=== PATIENT | female | born 1975 | race African-American/Black ===

== ENCOUNTER 2017-01-28 13:32 | Emergency (ER) | payer OTHER ==
[~2017-01-28] VITALS: Ht 170.2 cm; Wt 75.3 kg
[2017-01-28 13:43] VITALS: BP 127/82
== END 2017-01-28 14:50 | disposition home or self-care (01) ==
LOC: ER 13:37
DX: F20.9 Schizophrenia, unspecified (principal); Z76.0 Encounter for issue of repeat prescription

== ENCOUNTER 2019-03-18 21:36 | Emergency (ER) | payer MEDICARE, MEDICAID ==
[~2019-03-18] VITALS: Ht 157.5 cm; Wt 63.5 kg
[2019-03-18] MEDS ORDERED: HYDROcodone-ACET 7.5/325MG TAB PO ONE (23:15)
[2019-03-18] MEDS ORDERED: methylPREDNISolone SOD SUCC 125 MG/2 ML VL IM ONE (23:15)
[2019-03-18] MEDS ORDERED: cefTRIAXone SOD 1,000 MG VL IM ONE (23:15)
[2019-03-19 00:21] VITALS: BP 133/61
== END 2019-03-19 00:35 | disposition home or self-care (01) ==
LOC: ER 21:40
DX: S80.862A Insect bite (nonvenomous), left lower leg, initial encounter (principal); S80.861A Insect bite (nonvenomous), right lower leg, initial encounter; W57.XXXA Bitten or stung by nonvenomous insect and other nonvenomous arthropods, initial encounter; Y93.89 Activity, other specified; Y99.8 Other external cause status; Y92.89 Other specified places as the place of occurrence of the external cause
CPT/HCPCS: 96372; 99283; J0696; J2930

== ENCOUNTER 2019-06-13 20:25 | Emergency (ER) | payer MEDICARE, MEDICAID ==
[~2019-06-13] VITALS: Ht 167.6 cm; Wt 82.1 kg
[2019-06-13 20:44] VITALS: BP 150/91
== END 2019-06-14 00:53 | disposition left against medical advice (07) ==
LOC: ER 20:25
DX: R21 Rash and other nonspecific skin eruption (principal); Z53.21 Procedure and treatment not carried out due to patient leaving prior to being seen by health care provider

== ENCOUNTER 2019-11-18 13:16 | Emergency (ER) | payer MEDICARE, MEDICAID ==
[2019-11-18 15:07] LABS: Urine Bacteria NONE SEEN /hpf (None Seen); Urine Blood 2+ /uL (Negative); Urine Mucus FEW (None Seen); Urine WBC 2 /hpf (0 - 5)
== END 2019-11-18 18:19 | disposition left against medical advice (07) ==
LOC: ER 13:16
DX: R10.9 Unspecified abdominal pain (principal); Z53.21 Procedure and treatment not carried out due to patient leaving prior to being seen by health care provider
CPT/HCPCS: 81001

== ENCOUNTER 2019-11-19 19:56 | Emergency (ER) | payer MEDICARE, MEDICAID ==
[~2019-11-19] VITALS: Ht 167.6 cm; Wt 63.5 kg
[2019-11-19 20:10] VITALS: BP 127/84
== END 2019-11-20 01:46 | disposition home or self-care (01) ==
LOC: EDBD 19:56 → ER 19:59
DX: R51 Headache (principal)

== ENCOUNTER 2021-08-26 11:13 | Emergency (ER) | payer MEDICARE, MEDICAID ==
[~2021-08-26] VITALS: Ht 170.2 cm; Wt 77.1 kg
[2021-08-26] MEDS ORDERED: DIVA500T2 PO (13:21)
[2021-08-26] MEDS ORDERED: METF-370 PO (13:21)
[2021-08-26 14:17] VITALS: BP 130/74
== END 2021-08-26 14:26 | disposition home or self-care (01) ==
LOC: ER 11:13
DX: R56.9 Unspecified convulsions (principal); Z76.0 Encounter for issue of repeat prescription

== ENCOUNTER 2021-11-05 13:34 | Emergency (ER) | payer MEDICARE, MEDICAID ==
[~2021-11-05] VITALS: Ht 167.6 cm; Wt 88.9 kg
[~2021-11-05 13:34] MED LIST: DIVA500T2 PO; METF-370 PO
[2021-11-05 13:39] VITALS: BP 132/82
== END 2021-11-05 18:20 | disposition left against medical advice (07) ==
LOC: ER 13:34
DX: E11.9 Type 2 diabetes mellitus without complications (principal); Z76.0 Encounter for issue of repeat prescription; Z53.21 Procedure and treatment not carried out due to patient leaving prior to being seen by health care provider

== ENCOUNTER 2021-11-27 01:44 | Emergency (ER) | payer MEDICARE, MEDICAID ==
[~2021-11-27] VITALS: Ht 167.6 cm; Wt 88.9 kg
[2021-11-27 01:48] VITALS: BP 139/63
== END 2021-11-27 06:34 | disposition left against medical advice (07) ==
LOC: ER 01:44
DX: R53.1 Weakness (principal); Z53.21 Procedure and treatment not carried out due to patient leaving prior to being seen by health care provider

== ENCOUNTER 2025-01-07 10:51 | Emergency (ER) | payer MEDICAID, MEDICARE ==
[~2025-01-07] VITALS: Ht 177.8 cm; Wt 76.0 kg
[~2025-01-07 10:51] MED LIST changes: +DIVA-139 PO; +DIVA-91 PO; -DIVA500T2 PO; +METF-489 PO; +MUPI2OIN2 TOP; +TRAM50TA2 PO
[2025-01-07 11:25] VITALS: BP 111/75; PULSE 86; RESP 16; O2SAT 97
== END 2025-01-07 13:31 | disposition left against medical advice (07) ==
LOC: ER 10:51
DX: Z00.00 Encounter for general adult medical examination without abnormal findings (principal); Z53.21 Procedure and treatment not carried out due to patient leaving prior to being seen by health care provider; Y04.2XXA Assault by strike against or bumped into by another person, initial encounter; Y93.89 Activity, other specified; Y92.89 Other specified places as the place of occurrence of the external cause; Y99.8 Other external cause status

== ENCOUNTER 2025-04-02 10:07 | Inpatient (IN) | payer MEDICARE, MEDICAID ==
[~2025-04-02] VITALS: Ht 172.7 cm; Wt 70.5 kg
--- NOTE | 2025-04-02 10:23 | ED.PDOC ---
History of Present Illness HPI Comments 49-year-old female with no reported PMHx brought in by EMS presents with a chief complaint of foot pain x "couple weeks". Patient mentions that her pain is localized to her left foot, nonradiating, and her foot is swollen. [place] and is considered homeless. Patient endorses meth use, marijuana use, alcohol use, and heroin use. No other symptoms or modifying factors present at this time. Time Seen by MD: 10:14 Primary Care Provider: NONE Reviewed Notes: Nurses Notes, Medications, Allergies Allergies: Coded Allergies: NO KNOWN ALLERGIES (Unverified , 01/28/17) Home Meds Active Scripts Mupirocin (Pseudomonas Fluores (Mupirocin) 2 % Oin, 2 % TOP BID for 7 Days, #22 GRAMS Prov:CECILIALIBBY ORANTES 01/26/24 Tramadol Hcl (Tramadol Hcl) 50 Mg Tab, 50 MG PO TIDPRN PRN, #12 TAB Prov:LIBBY BROOKS 01/26/24 Divalproex Sodium (Depakote) 250 Mg Tab, 1 TAB PO BID, #60 TAB 0 Refills Prov:LIBBY BROOKS 01/26/24 Metformin Hydrochloride (METFORMIN HCL ER) 500 Mg Tab, 1 TAB PO DAILY, #30 TAB 0 Refills Prov:CECILIALIBBY ORANTES 01/26/24 Divalproex Sodium (Depakote) 500 Mg Tab, 1 TAB PO BID, #60 TAB 0 Refills Prov:SONALI RENDON MD 08/26/21 Metformin Hydrochloride (Metformin Hcl) 500 Mg Tab, 500 MG PO DAILY for 30 Days, #30 MG 0 Refills Prov:SONALI RENDON MD 08/26/21 Information Source: Patient, Emergency Med Personnel Mode of Arrival: EMS Severity: Moderate Timing: Days Duration: Since onset Prehospital treatment: Manufacturing Supervisor Past Medical History PAST MEDICAL HISTORY: Denies Surgical History: Denies all surgeries NEUROPHYSIOLOGICAL TECHNICIAN History: No Pertinent NEUROPHYSIOLOGICAL TECHNICIAN History Family History Family History: Reviewed,noncontributory to illness, No family hx of Cancer, No family hx of DM, No family hx of Heart ester, No family hx of HTN, No family hx ofKidney ester, No family hx of Liver ester, No family hx of Lung ester, No family hx of Stroke Social History Smoker: Cigarettes, Less Than 1 Pack/Day Alcohol: Heavy Drugs: Heroin, Marijuana, Methamphetamine Lives In: Homeless Constitutional: denies: chills, diaphoresis, fatigue, fever, malaise, sweats, weakness, others EENTM: denies: blurred vision, double vision, ear bleeding, ear discharge, ear drainage, ear pain, ear ringing, eye pain, eye redness, hearing loss, mouth pain, mouth swelling, nasal discharge, nose bleeding, nose congestion, nose pain, photophobia, tearing, throat pain, throat swelling, voice changes, others Respiratory: denies: cough, hemoptysis, orthopnea, SOB at rest, shortness of breath, SOB with excertion, stridor, wheezing, others Cardiovascular: denies: chest pain, dizzy spells, diaphoresis, Dyspnea on exertion, edema, irregular heart beat, left arm pain, lightheadedness, palpitations, PND, syncope, others Gastrointestinal: denies: abdomen distended, abdominal pain, blood streaked bowels, constipated, diarrhea, dysphagia, difficulty swallowing, hematemesis, melena, nausea, poor appetite, poor fluid intake, rectal bleeding, rectal pain, vomiting, others Genitourinary: denies: abnormal vagina bleeding, burning, dyspareunia, dysuria, flank pain, frequency, hematuria, incontinence, pain, , vagina discharge, urgency, others Neurological: denies: dizziness, fainting, headache, left sided numbness, left sided weakness, numbness, paresthesia, pre-existing deficit, right sided numbness, right sided weakness, seizure, speech problems, tingling, tremors, weakness, others Musculoskeletal: reports: muscle pain; denies: back pain, gout, joint pain, joint swelling, muscle stiffness, neck pain, others Integumetry: denies: bruises, change in color, change in hair/nails, dryness, laceration, lesions, lumps, rash, wounds, others Allergic/Immunocompromised: denies: Difficulty Healing, Frequent Infections, Hives, Itching, others Hematologic/Lymphatic: denies: anemia, blood clots, easy bleeding, easy bruising, swollen glands, others Endocrine: denies: excessive hunger, excessive sweating, excessive thirst, excessive urination, flushing, intolerance to cold, intolerance to heat, unexplained weight gain, unexplained weight loss, others Psychiatric: denies: anxiety, bipolar disorder, depression, hopeless, panic disorder, schizophrenia, sleepless, suicidal, others All Other Systems: Reviewed and Negative Physical Exam General Appearance: Mild Distress HEENT: Normal ENT Inspection, Pharynx Normal, TMs Normal Neck: Full Range of Motion, Non-Tender, Normal, Normal Inspection Respiratory: Chest Non-Tender, Lungs Clear, No Accessory Muscle Use, No Respiratory Distress, Normal Breath Sounds Cardiovascular: No Edema, No JVD, No Murmur, No Gallop, Normal Peripheral Pulses, Regular Rate/Rhythm Breast Exam: Deferred Gastrointestinal: No Organomegaly, Non Tender, No Pulsatile Mass, Normal Bowel Sounds, Soft Genitalia: Deferred Pelvic: Deferred Rectal: Deferred Extremities: No calf tenderness, Normal capillary refill, Normal inspection, Normal range of motion, Non-tender, No pedal edema Musculoskeletal : Apperance: Normal Neurologic: Alert, wind commissioning technician II-XII nml as Tested, No Motor Deficits, Normal Affect, Normal Mood, No Sensory Deficits Cerebellar Function: Normal Reflexes: Normal Skin: Dry, Rash (There is redness in her rash to the lower extremities with tenderness to palpation), Warm Lymphatic: No Adenopathy Was a procedure done? Was a procedure done?: No Differential Dx Considerations may include: Cellulitis, osteomyelitis X-Ray, Labs, Meds, VS Vital Signs Date Time Temp Pulse Resp B/P (MAP) Pulse Ox O2 Delivery O2 Flow Rate FiO2 04/02/25 13:45 97.1 67 18 111/64 (80) 98 97.1 04/02/25 11:01 97.7 74 16 100/58 (72) 98 97.7 04/02/25 11:01 74 16 98 Room Air 04/02/25 10:30 98.8 84 16 134/97 (109) 96 98.8 Lab Test 04/02/25 10:42 Range/Units White Blood Count 7.8 4.4-10.8 10^3/uL Red Blood Count 4.22 4.0-5.20 10^6/uL Hemoglobin 13.0 12.2-16.2 g/dL Hematocrit 37.2 36.0-46.0 % Mean Corpuscular Volume 88.1 80.0-100.0 fL Mean Corpuscular Hemoglobin 30.8 28.0-32.0 pg Mean Corpuscular Hemoglobin Concent 35.0 32.0-36.0 g/dL Red Cell Distribution Width 12.9 11.8-14.3 % Platelet Count 376 140-450 10^3/uL Mean Platelet Volume 8.0 6.9-10.8 fL Neutrophils (%) (Auto) 73.5 37.0-80.0 % Lymphocytes (%) (Auto) 19.0 10.0-50.0 % Monocytes (%) (Auto) 6.3 0.0-12.0 % Eosinophils (%) (Auto) 0.8 0.0-7.0 % Basophils (%) (Auto) 0.4 0.0-2.0 % Neutrophils # (Auto) 5.7 1.6-8.6 10 ^3/uL Lymphocytes # (Auto) 1.5 0.4-5.4 10 ^3/uL Monocytes # (Auto) 0.5 0-1.3 10 ^3/uL Eosinophils # (Auto) 0.1 0-0.8 10 ^3/uL Basophils # (Auto) 0 0-0.2 10 ^3/uL Nucleated Red Blood Cells 0.1 % Erythrocyte Sedimentation Rate 80 H 0-20 mm/hr Sodium Level 137 136-145 mmol/L Potassium Level 3.6 3.5-5.1 mmol/L Chloride Level 104 98-107 mmol/L Carbon Dioxide Level 28 20-31 mmol/L Anion Gap 5 5-15 Blood Urea Nitrogen 12 9-23 mg/dL Creatinine 0.80 0.550-1.02 mg/dL Glomerular Filtration Rate Calc 90 >90 mL/min BUN/Creatinine Ratio 15.0 10.0-20.0 Serum Glucose 124 H 74-106 mg/dL Calcium Level 9.3 8.7-10.4 mg/dL Plasma/Serum Blood Alcohol < 3.0 <10 mg/dL Current Medications Medications (Trade) Dose Ordered Sig/Guillermo Route Start Time Stop Time Status Last Admin Clindamycin Phosphate 50 ml @ 50 mls/hr ONCE ONCE IV 04/02/25 10:30 04/02/25 11:29 DC 04/02/25 11:09 Sodium Chloride 1,000 ml @ 1,000 mls/hr Q1H ONCE IV 04/02/25 10:30 04/02/25 11:29 DC 04/02/25 11:00 IV Hep-Lock was established him on the face in his started on clindamycin IV piggyback Given 1 L bolus of normal saline At this time, the patient has been head diagnosis bilateral leg cellulitis The patient understands and agrees with the management The CBC is within normal limits around the chemistry panel within normal limits when the ESR is elevated in bed eating Time of 1ST Reevaluation: 10:44 Reevaluation 1ST: Unchanged Patient Education/Counseling: Diagnosis, Treatment, Prognosis Family Education/Counseling: No Family Present Departure 1 Departure Time of Disposition: 16:31 Impression: Primary Impression: Bilateral lower leg cellulitis Additional Impression: History of schizophrenia Disposition: ADMITTED INPATIENT Admit to: Med Surg Condition: Fair Critical Care Note Critical Care Time?: No Stability Stability form required: Yes Unstable for transfer: ED Physician Assesment (Clinical assesment) Heart Score Heart Score: Heart Score Response (Comments) Value History N/A 0 EKG N/A 0 Age N/A 0 Risk Factors N/A 0 Troponin N/A 0 Total 0 I personally scribed for ALY JOSEPH MD ([email or web address]) on 04/02/25 at 10:23. Electronically submitted by Bryan Eugene ([email or web address]). ALY JOSEPH MD Apr 02, 2025 10:23
[2025-04-02 10:58] LABS: Basophils # (auto) 0 10 ^3/uL (0-0.2); Basophils % (auto) 0.4 % (0.0-2.0); Eosinophils # (auto) 0.1 10 ^3/uL (0-0.8); Eosinophils % (auto) 0.8 % (0.0-7.0); Hematocrit 37.2 % (36.0-46.0); Lymphocytes # (auto) 1.5 10 ^3/uL (0.4-5.4); Mean Corpuscular Hemoglobin 30.8 pg (28.0-32.0); Mean Corpuscular Volume 88.1 fL (80.0-100.0); Monocytes # (auto) 0.5 10 ^3/uL (0-1.3); Monocytes % (auto) 6.3 % (0.0-12.0); Neutrophils # (auto) 5.7 10 ^3/uL (1.6-8.6); Neutrophils % (auto) 73.5 % (37.0-80.0); Nucleated Red Blood Cells % 0.1 %; Platelet Count (auto) 376 10^3/uL (140-450); Red Blood Cells 4.22 10^6/uL (4.0-5.20); Red Cell Distribution Width 12.9 % (11.8-14.3); White Blood Cell 7.8 10^3/uL (4.4-10.8)
[2025-04-02] MEDS: SODIUM CHLORIDE 0.9% 1,000 ML IV ONE (11:00)
[2025-04-02 11:08] LABS: Chloride 104 mmol/L (98-107); Potassium 3.6 mmol/L (3.5-5.1); Sodium 137 mmol/L (136-145)
[2025-04-02 11:09] LABS: Anion Gap 5 (5-15); Carbon Dioxide 28 mmol/L (20-31)
[2025-04-02] MEDS: CLINDAMYCIN 600MG IV 50 ML IV ONE (11:09)
[2025-04-02 11:10] LABS: Calcium 9.3 mg/dL (8.7-10.4)
[2025-04-02 11:14] LABS: Blood Urea Nitrogen 12 mg/dL (9-23)
[2025-04-02 11:16] LABS: Blood Alcohol < 3.0 mg/dL (<10); Glucose 124 mg/dL (74-106)
[2025-04-02 11:32] LABS: Erythrocyte Sedimentation Rate 80 mm/hr (0-20)
[2025-04-02] MEDS ORDERED: ONDANSETRON HCL 4 MG/2 ML VIAL IV PRN (19:00)
[2025-04-02] MEDS ORDERED: HYDROcodone-ACET 5/325MG TAB PO PRN (19:00)
[2025-04-02] MEDS ORDERED: ACETAMINOPHEN 325 MG TAB PO PRN (19:00)
[2025-04-02 20:02] VITALS: O2SAT 98
--- NOTE | 2025-04-02 21:48 | DVHHP2 ---
History of Present Illness Reason for Visit: Foot cellulitis History of Present Illness 49-year-old female presents for evaluation of bilateral feet redness. Patient reports a two week history of noticing redness to her left foot and now started on her right foot as well. Denies any trauma to the area. No fever or chills. No other acute complaints. Past Medical History Diabetes mellitus Past Surgical History Denies Family History Noncontributory Smoke: No ALCOHOL: none Drugs: None Lives: with Family Review of Systems Review of Systems Review of systems are currently negative otherwise addressed in HPI. Allergies: Coded Allergies: NO KNOWN ALLERGIES (Unverified , 01/28/17) Medications Current Medications Medications Dose Ordered Sig/Guillermo Route Start Time Stop Time Status Last Admin Dose Admin Acetaminophen/ Hydrocodone Bitart 1 tab Q4HP PRN PO 04/02/25 19:00 Ondansetron HCl 4 mg Q4HP PRN IV 04/02/25 19:00 Acetaminophen 650 mg Q6HP PRN PO 04/02/25 19:00 Exam Vital Signs Vital Signs Date Time Temp Pulse Resp B/P (MAP) Pulse Ox O2 Delivery O2 Flow Rate FiO2 04/02/25 20:02 98 Room Air* 0 21 04/02/25 19:39 98.8 82 20 120/68 (85) 98.8 Exam Gen: 49-year-old female in mild distress. Skin: Warm, dry, normal color and texture, no rash. HEENT: Normocephalic atraumatic, mucous membranes moist and pink. Neck: Cervical and supraclavicular nodes normal without enlargement, trachea is midline, thyroid gland is normal without masses. Pulmonary: Clear to auscultation and percussion bilaterally. Cardiac: Regular rate and rhythm. No murmur Abdomen: Soft, nontender, nondistended, bowel sounds present all 4 quadrants, no guarding, no rigidity, no organomegaly. Extremities: No cyanosis, clubbing, bilateral feet cellulitis Neuro: Cranial nerves II through XII grossly intact, normal affect and speech, no focal motor deficits. Labs/Xrays Labs Test 04/02/25 19:18 04/02/25 10:42 Range/Units Lactic Acid Level 0.9 0.4-2.0 mmol/L White Blood Count 7.8 4.4-10.8 10^3/uL Red Blood Count 4.22 4.0-5.20 10^6/uL Hemoglobin 13.0 12.2-16.2 g/dL Hematocrit 37.2 36.0-46.0 % Mean Corpuscular Volume 88.1 80.0-100.0 fL Mean Corpuscular Hemoglobin 30.8 28.0-32.0 pg Mean Corpuscular Hemoglobin Concent 35.0 32.0-36.0 g/dL Red Cell Distribution Width 12.9 11.8-14.3 % Platelet Count 376 140-450 10^3/uL Mean Platelet Volume 8.0 6.9-10.8 fL Neutrophils (%) (Auto) 73.5 37.0-80.0 % Lymphocytes (%) (Auto) 19.0 10.0-50.0 % Monocytes (%) (Auto) 6.3 0.0-12.0 % Eosinophils (%) (Auto) 0.8 0.0-7.0 % Basophils (%) (Auto) 0.4 0.0-2.0 % Neutrophils # (Auto) 5.7 1.6-8.6 10 ^3/uL Lymphocytes # (Auto) 1.5 0.4-5.4 10 ^3/uL Monocytes # (Auto) 0.5 0-1.3 10 ^3/uL Eosinophils # (Auto) 0.1 0-0.8 10 ^3/uL Basophils # (Auto) 0 0-0.2 10 ^3/uL Nucleated Red Blood Cells 0.1 % Erythrocyte Sedimentation Rate 80 H 0-20 mm/hr Sodium Level 137 136-145 mmol/L Potassium Level 3.6 3.5-5.1 mmol/L Chloride Level 104 98-107 mmol/L Carbon Dioxide Level 28 20-31 mmol/L Anion Gap 5 5-15 Blood Urea Nitrogen 12 9-23 mg/dL Creatinine 0.80 0.550-1.02 mg/dL Glomerular Filtration Rate Calc 90 >90 mL/min BUN/Creatinine Ratio 15.0 10.0-20.0 Serum Glucose 124 H 74-106 mg/dL Calcium Level 9.3 8.7-10.4 mg/dL Plasma/Serum Blood Alcohol < 3.0 <10 mg/dL Assessment/Plan Assessment/Plan Assessment Bilateral feet cellulitis Diabetes mellitus Plan Admit the patient to [facility] to the hospitalist Clindamycin Wound consult Continue treatment per orders. Plan discussed with: Patient My Orders Orders - МАРИНА BENEDICT Procedure Category Date Status Time Blood Culture KATHERIN 04/02/25 In Process 18:50 Consistent DIET 04/03/25 Transmitted Carb(Ccho)Diabetes Breakfast Basic Metabolic Panel LAB 04/03/25 Verified 04:00 Admit ADMIT 04/02/25 Transmitted 18:50 Hydrocodone-Acet PHA 04/02/25 In Process 5/325mg Tab ([place] 19:00 Ondansetron Hcl PHA 04/02/25 In Process (Zofran) 19:00 Complete Blood Count LAB 04/03/25 Verified 04:00 Condition: Stable CHICHI 04/02/25 In Process 18:50 Acetaminophen Tablet PHA 04/02/25 In Process (Tylenol Tablet) 19:00 Bedrest With Bathroom CHICHI 04/02/25 In Process Privileg 18:50 * Retail And Promotions Coordinator CONS 04/02/25 Transmitted Consult 20:43 Bilat Lower Dvt US 04/02/25 Verified 21:43 Clindamycin Ivpb PHA 04/02/25 Verified Cleocin 22:00 * Wound Consult CONS 04/02/25 Verified Date of Service: Apr 02, 2025 Billing Provider: МАРИНА BENEDICT Common Visit Codes: [id number] INP/OBS CARE (MOD) МАРИНА BENEDICT Apr 02, 2025 21:48
[2025-04-02 22:08] VITALS: PULSE 59; RESP 18; O2SAT 99
[2025-04-02 22:20] VITALS: BP 126/59; PULSE 59; RESP 18; TEMP 98.4; O2SAT 99
[2025-04-02] MEDS: CLINDAMYCIN 600MG IV 50 ML IV SCH (23:23)
[2025-04-03 01:00] VITALS: BP 108/63; PULSE 62; RESP 18; TEMP 98.2; O2SAT 100
--- NOTE | 2025-04-03 01:45 | DVH ---
Bilateral lower extremity venous duplex Clinical History: r/o dvt Comparison: None Technique: Duplex Doppler evaluation of the deep venous systems of both lower extremities from the common femora l veins to the popliteal veins including color Doppler and spectral/pulsed waveform analysis was perf ormed. Findings: RIGHT SIDE: The common femoral vein demonstrates appropriate compressibility and waveform variability. There is compressibility/patency of the great saphenous vein at the proximal thigh. The femoral vein demonstrates appropriate compressibility and waveform variability. The deep femoral vein demonstrates appropriate compressibility and waveform variability. The popliteal vein demonstrates appropriate compressibility and waveform variability. There is normal compressibility at the tibioperoneal trunk. LEFT SIDE: The common femoral vein demonstrates appropriate compressibility and waveform variability. There is compressibility/patency of the great saphenous vein at the proximal thigh. The femoral vein demonstrates appropriate compressibility and waveform variability. The deep femoral vein demonstrates appropriate compressibility and waveform variability. The popliteal vein demonstrates appropriate compressibility and waveform variability. There is normal compressibility at the tibioperoneal trunk. Impression: 1. No right or left femoropopliteal venous thrombosis.
[2025-04-03 05:00] VITALS: BP 103/56; PULSE 55; RESP 19; TEMP 97.9; O2SAT 98
[2025-04-03 06:54] LABS: Chloride 105 mmol/L (98-107); Potassium 4.1 mmol/L (3.5-5.1); Sodium 140 mmol/L (136-145)
[2025-04-03 06:55] LABS: Anion Gap 6 (5-15); Carbon Dioxide 29 mmol/L (20-31)
[2025-04-03 07:00] LABS: BUN/Creatinine Ratio 14.6 (10.0-20.0); Blood Urea Nitrogen 14 mg/dL (9-23); Glucose 101 mg/dL (74-106)
[2025-04-03 07:02] LABS: Calcium 8.5 mg/dL (8.7-10.4)
[2025-04-03 07:12] LABS: Basophils # (auto) 0 10 ^3/uL (0-0.2); Basophils % (auto) 0.5 % (0.0-2.0); Eosinophils # (auto) 0.2 10 ^3/uL (0-0.8); Eosinophils % (auto) 2.5 % (0.0-7.0); Hematocrit 34.7 % (36.0-46.0); Hemoglobin 11.9 g/dL (12.2-16.2); Lymphocytes % (auto) 29.7 % (10.0-50.0); Mean Corpuscular Hemoglobin 30.5 pg (28.0-32.0); Mean Corpuscular Hgb Conc. 34.3 g/dL (32.0-36.0); Monocytes # (auto) 0.6 10 ^3/uL (0-1.3); Monocytes % (auto) 9.4 % (0.0-12.0); Neutrophils # (auto) 3.9 10 ^3/uL (1.6-8.6); Neutrophils % (auto) 57.9 % (37.0-80.0); Nucleated Red Blood Cells % 0.1 %; Platelet Count (auto) 357 10^3/uL (140-450); Red Cell Distribution Width 12.9 % (11.8-14.3); White Blood Cell 6.8 10^3/uL (4.4-10.8)
[2025-04-03 09:19] VITALS: BP 107/61; PULSE 58; RESP 17; TEMP 98.1; O2SAT 100
[2025-04-03 13:00] VITALS: BP 118/68; PULSE 56; RESP 17; TEMP 97.8; O2SAT 100
--- NOTE | 2025-04-03 15:29 | DVHPN2 ---
Reviewed: Care Plan, H&P, Labs, Medications, Previous Orders, Radiology Changes from previous H/P or p: No Changes Objective Vitals Vital Signs Date Time Temp Pulse Resp B/P (MAP) Pulse Ox O2 Delivery O2 Flow Rate FiO2 04/03/25 13:00 97.8 56 17 118/68 (85) 100 97.8 04/02/25 22:08 Room Air* 0 21 Intake/Output Intake and Output 04/03/25 07:00 Intake Total 1750 ml Balance 1750 ml Intake Oral 600 ml IV Total 1150 ml # Voids 3 Medications Current Medications Medications Dose Ordered Sig/Guillermo Route Start Time Stop Time Status Last Admin Dose Admin Acetaminophen/ Hydrocodone Bitart 1 tab Q4HP PRN PO 04/02/25 19:00 Ondansetron HCl 4 mg Q4HP PRN IV 04/02/25 19:00 Acetaminophen 650 mg Q6HP PRN PO 04/02/25 19:00 Clindamycin Phosphate 50 ml @ 50 mls/hr Q8HR IV 04/02/25 22:00 04/03/25 14:47 50 MLS/HR Laboratory Results Laboratory Tests 04/03/25 05:25 Chemistry Test 04/03/25 05:25 Calcium Level 8.5 mg/dL (8.7-10.4) L Labs and/or images reviewed: Labs reviewed by me, Image(s) reviewed by me Assessment/Plan Assessment/Plan Cellulitis bilateral lower extremities: Rocephin clindamycin Diabetes DVT ruled out Plan discussed with: Patient Date of Service: Apr 03, 2025 Billing Provider: DIMAS MULLER MD Common Visit Codes: [id number] INP/OBS CARE(HIGH) DIMAS MULLER MD Apr 03, 2025 15:29
[2025-04-03 16:42] VITALS: BP 137/75; PULSE 64; RESP 17; TEMP 98.5; O2SAT 100
[2025-04-03] MEDS: cefTRIAXone 1GM/50ML D5W 50 ML IV ONE (18:06)
[2025-04-03 21:00] VITALS: BP 135/75; PULSE 60; RESP 16; TEMP 98.4; O2SAT 98
[2025-04-04 01:00] VITALS: BP 135/104; PULSE 71; RESP 20; O2SAT 98
[2025-04-04 07:44] VITALS: BP 121/74; PULSE 100; RESP 18; TEMP 98.5; O2SAT 61
[2025-04-04] MEDS ORDERED: HYDR-4902 PO (07:55)
[2025-04-04] MEDS ORDERED: CLIN1CAP70 PO (07:55)
[2025-04-04] MEDS ORDERED: CEPH250C PO (07:55)
--- NOTE | 2025-04-04 07:57 | DVHPN2 ---
Reviewed: Care Plan, H&P, Labs, Medications, Previous Orders, Radiology Changes from previous H/P or p: No Changes Objective Vitals Vital Signs Date Time Temp Pulse Resp B/P (MAP) Pulse Ox O2 Delivery O2 Flow Rate FiO2 04/04/25 07:44 98.5 100 18 121/74 (90) 61 98.5 04/03/25 20:00 Room Air* 0 21 Intake/Output Intake and Output 04/04/25 07:00 Intake Total 1700 ml Balance 1700 ml Intake Oral 1550 ml IV Total 150 ml # Voids 8 Medications Current Medications Medications Dose Ordered Sig/Guillermo Route Start Time Stop Time Status Last Admin Dose Admin Acetaminophen/ Hydrocodone Bitart 1 tab Q4HP PRN PO 04/02/25 19:00 Ondansetron HCl 4 mg Q4HP PRN IV 04/02/25 19:00 Acetaminophen 650 mg Q6HP PRN PO 04/02/25 19:00 Clindamycin Phosphate 50 ml @ 50 mls/hr Q8HR IV 04/02/25 22:00 04/04/25 05:31 50 MLS/HR Ceftriaxone Sodium 50 ml @ 100 mls/hr DAILY@09 IV 04/04/25 09:00 Laboratory Results Laboratory Tests 04/03/25 05:25 Microbiology Microbiology Date/Time Source Procedure Growth Status 04/02/25 19:18 Blood Blood Culture - Preliminary NO GROWTH AFTER 24 HOURS OF INCUBATION. Resulted Labs and/or images reviewed: Labs reviewed by me, Image(s) reviewed by me Assessment/Plan Assessment/Plan Cellulitis bilateral lower extremities: Rocephin clindamycin Diabetes DVT ruled out Patient feels better and wants to be discharged Plan discussed with: Patient My Orders Orders - DIMAS MULLER MD Procedure Category Date Status Time Ceftriaxone 1gm/50ml PHA 04/04/25 In Process D5w (Rocephin) 09:00 Apply: CHICHI 04/03/25 In Process 12:52 * Dietary Consult CONS 04/03/25 Transmitted 19:06 Schedule For Dc CHICHI 04/04/25 In Process Clinic F/U 07:53 Date of Service: Apr 04, 2025 Billing Provider: DIMAS MULLER MD Common Visit Codes: [id number] INP/OBS CARE(HIGH) DIMAS MULLER MD Apr 04, 2025 07:57
--- NOTE | 2025-04-04 08:00 | DVHDS2 ---
Discharge Summary Date of Admission Apr 02, 2025 at 18:50 Date of Discharge: Apr 04, 2025 Admitting Diagnosis Cellulitis bilateral lower extremities Wounds: None Labs/Diagnostic Data: Laboratory Results Test 04/03/25 05:25 04/02/25 19:18 04/02/25 10:42 White Blood Count 6.8 10^3/uL (4.4-10.8) Red Blood Count 3.90 10^6/uL (4.0-5.20) Hemoglobin 11.9 g/dL (12.2-16.2) Hematocrit 34.7 % (36.0-46.0) Mean Corpuscular Volume 89.0 fL (80.0-100.0) Mean Corpuscular Hemoglobin 30.5 pg (28.0-32.0) Mean Corpuscular Hemoglobin Concent 34.3 g/dL (32.0-36.0) Red Cell Distribution Width 12.9 % (11.8-14.3) Platelet Count 357 10^3/uL (140-450) Mean Platelet Volume 8.4 fL (6.9-10.8) Neutrophils (%) (Auto) 57.9 % (37.0-80.0) Lymphocytes (%) (Auto) 29.7 % (10.0-50.0) Monocytes (%) (Auto) 9.4 % (0.0-12.0) Eosinophils (%) (Auto) 2.5 % (0.0-7.0) Basophils (%) (Auto) 0.5 % (0.0-2.0) Neutrophils # (Auto) 3.9 10 ^3/uL (1.6-8.6) Lymphocytes # (Auto) 2.0 10 ^3/uL (0.4-5.4) Monocytes # (Auto) 0.6 10 ^3/uL (0-1.3) Eosinophils # (Auto) 0.2 10 ^3/uL (0-0.8) Basophils # (Auto) 0 10 ^3/uL (0-0.2) Nucleated Red Blood Cells 0.1 % Sodium Level 140 mmol/L (136-145) Potassium Level 4.1 mmol/L (3.5-5.1) Chloride Level 105 mmol/L (98-107) Carbon Dioxide Level 29 mmol/L (20-31) Anion Gap 6 (5-15) Blood Urea Nitrogen 14 mg/dL (9-23) Creatinine 0.96 mg/dL (0.550-1.02) Glomerular Filtration Rate Calc 72 mL/min (>90) BUN/Creatinine Ratio 14.6 (10.0-20.0) Serum Glucose 101 mg/dL (74-106) Calcium Level 8.5 mg/dL (8.7-10.4) Lactic Acid Level 0.9 mmol/L (0.4-2.0) Erythrocyte Sedimentation Rate 80 mm/hr (0-20) Plasma/Serum Blood Alcohol < 3.0 mg/dL (<10) Other Laboratory Tests 04/03/25 05:25 Brief Hx & Hospital Course: 49-year-old female homeless history of diabetes came in complaining of redness swelling and tenderness with a bilateral lower legs found to have cellulitis treated with Rocephin and clindamycin DVT ruled out. Afebrile vitals stable patient like to be discharged. Discharged home on Keflex clindamycin and Byron which was transmitted to the [facility]. She will follow up in discharge clinic in one week. Social service consult placed for arranging primary Dr and also for giving patient homeless resources. Consults/Reason for consult None Operations or Procedures Venous ultrasound Condition at Discharge: Fair Final Diagnosis/Problems List Cellulitis bilateral lower extremities: Rocephin clindamycin Diabetes DVT ruled out Discharge Disposition: Home Discharge Instruct/Medications Diet: Regular Activity: Light activity Follow Up/Referral: Follow up with the discharge clinic in one week Fill prescription today and start taking meds Medications: Keflex Clindamycin [facility] (Time taken for discharge summary 35 minutes) Discharge Statement: "Patient was advised to return to the ER or call 911 if any headaches, dizziness, shortness of breath, chest pain, abdominal pain, bleeding, fevers, or worsening of medical condition. Patient was counseled about treatment plan, medications, possible side effects, patientverbalized understanding. All questions were answered to the best of my ability. This discharge took greater then 30 minutes in planning, reviewing documentation, counseling the patient, and discussing with other team members." ASSESSMENT ASSESSMENT Hospital Course Improved Assessment Cellulitis bilateral lower extremities: Rocephin clindamycin Diabetes DVT ruled out Date of Service: Apr 04, 2025 Billing Provider: DIMAS MULLER MD Common Visit Codes: [id number] DISCH DAY >30min DIMAS MULLER MD Apr 04, 2025 08:00
[2025-04-04] MEDS: cefTRIAXone 1GM/50ML D5W 50 ML IV SCH (08:53)
[2025-04-04 10:59] VITALS: TEMP 36.9
[2025-04-04 13:00] VITALS: BP 121/63; PULSE 67; RESP 20; TEMP 98.7; O2SAT 92
== END 2025-04-04 12:20 | disposition home or self-care (01) | DRG 603 ==
LOC: EDBD 10:07 → ER 10:07 → OVERFLOW 18:50 → CENTRAL 22:08
PROVIDERS: ADMIT Family Medicine; ATTEND Family Medicine
DX: L03.116 Cellulitis of left lower limb (principal); Z59.00 Homelessness unspecified; E11.9 Type 2 diabetes mellitus without complications; F15.90 Other stimulant use, unspecified, uncomplicated; F11.90 Opioid use, unspecified, uncomplicated; F17.210 Nicotine dependence, cigarettes, uncomplicated; F12.90 Cannabis use, unspecified, uncomplicated; F20.9 Schizophrenia, unspecified; L03.115 Cellulitis of right lower limb; Z79.84 Long term (current) use of oral hypoglycemic drugs; Z79.899 Other long term (current) drug therapy
CPT/HCPCS: 36415; 80048; 80320; 83605; 85025; 85652; 87040; 93970; G0378; J3490